=== PATIENT | female | born 1970 | race Hispanic/Latino ===

== ENCOUNTER 2016-11-22 11:08 | Emergency (ER) | payer OTHER ==
[2016-11-22 11:32] VITALS: BP 130/89
--- NOTE | 2016-11-22 13:35 | XRay Report ---
LEFT SHOULDER: Pain. Routine views demonstrate normal bony and soft tissue structures with normal joint alignment of the shoulder. IMPRESSION: Normal study.
--- NOTE | 2016-11-22 13:48 | Emergency Department Report ---
HPI - General Chief Complaint: Shoulder Injury Time Seen by Provider: 11/22/16 13:45 - HPI HPI: 46-year-old female, accompanied by sister, presents today complaining of left shoulder pain post fall off of a 6 foot ladder yesterday. Her sister is acting as a core microarchitect. Patient states that she landed on her left side. Denies head injury or loss of consciousness. Rates her pain as 8 out of 10 constant chest ache, patient states that she feels like her left shoulder is broken. Denies neck or back pain. Denies numbness, weakness, paresthesias. Denies fever, chills, nausea, vomiting, chest pain, shortness of breath, abdominal pain. ED Past Medical Hx - Past Medical History Hx Headaches / Migraines: Yes - Surgical History Hx Cholecystectomy: Yes Additional Surgical History: TUBAL - Social History Smoking Status: Never Smoker Substance Use Type: None - Medications Home Medications: Home Medications Medication Instructions Recorded Confirmed Last Taken Type Acetaminophen/Codeine [Tylenol 1 tab PO Q6H PRN #20 tab 11/22/16 Unknown Rx /Codeine # 3 tab] Cyclobenzaprine [Flexeril] 10 mg PO TID PRN #20 tablet 11/22/16 Unknown Rx ED Review of Systems ROS: Stated complaint: FALL,LEFT SIDE SHOULDER PAIN Other details as noted in HPI Constitutional: denies: chills, fever, malaise Eyes: denies: eye pain ENT: denies: ear pain, throat pain, congestion Respiratory: denies: cough, shortness of breath, wheezing Cardiovascular: denies: chest pain, palpitations Endocrine: no symptoms reported Gastrointestinal: denies: abdominal pain, nausea, vomiting Musculoskeletal: arthralgia. denies: back pain Neurological: denies: headache, weakness, numbness, paresthesias Physical Exam - Physical Exam Vital Signs: Vital Signs 11/22/16 11:22 Temperature 98 F Pulse Rate 75 Respiratory 16 Rate Blood Pressure 130/89 O2 Sat by Pulse 100 Oximetry Physical Exam: GENERAL: The patient is well-developed and well-nourished. Patient is in NAD. HEAD: Normocephalic. Atraumatic. NECK: Supple, nontender, without lymphadenopathy. No meningitic signs are noted. No vertebral tenderness to palpation. Mild tenderness to palpation noted over left trapezius muscle group. BACK: Full ROM. No midline tenderness. Mild tenderness to palpation noted over her left trapezius muscle group. No tenderness to palpation of sciatic notch bilaterally. Negative straight-leg raise bilaterally. CHEST/LUNGS: Clear to auscultation throughout. HEART/CARDIOVASCULAR: Regular rate and rhythm. No murmurs, rubs or gallops. ABDOMEN: Abdomen is soft, nontender. Bowel sounds normoactive. No guarding or rebound tenderness. EXTREMITIES: Tenderness to palpation of the left shoulder joint. Full range of motion, but extremely painful. No ecchymosis, deformity or crepitus noted. Normal sensation. 2 point discrimination intact. Peripheral pulses intact. Capillary refill less than 2 seconds. NEURO: Alert and oriented x 3. Normal gait. ED Course Vital Signs 11/22/16 11:22 Temperature 98 F Pulse Rate 75 Respiratory 16 Rate Blood Pressure 130/89 O2 Sat by Pulse 100 Oximetry ED Medical Decision Making - Lab Data Vital Signs 11/22/16 11:22 Temperature 98 F Pulse Rate 75 Respiratory 16 Rate Blood Pressure 130/89 O2 Sat by Pulse 100 Oximetry - Radiology Data Radiology results: report reviewed LEFT SHOULDER: Pain. Routine views demonstrate normal bony and soft tissue structures with normal joint alignment of the shoulder. IMPRESSION: Normal study. - Medical Decision Making 46-year-old female presents today complaining of left shoulder pain post six- foot fall off a ladder. Her x-ray results revealed no acute findings. Patient has been given Arminto, Flexeril and Zofran for pain control. Her left arm has been put in a sling. Patient has been provided with a referral for orthopedic to follow-up with. Patient is in no acute distress at this time. She will be discharged home and is encouraged to follow up with a primary care provider. She will be sent home on Flexeril and Tylenol 3 and is encouraged to return to the emergency room for any worsening symptoms. Critical care attestation.: If time is entered above; I have spent that time in minutes in the direct care of this critically ill patient, excluding procedure time. ED Disposition Clinical Impression: Shoulder pain Qualifiers: Chronicity: acute Laterality: left Qualified Code(s): M25.512 - Pain in left shoulder Fall Qualifiers: Encounter type: initial encounter Qualified Code(s): W19.XXXA - Unspecified fall, initial encounter Disposition: TO HOME OR SELFCARE Is pt being admited?: No Does the pt Need Aspirin: No Condition: Stable Instructions: Shoulder Sprain (ED), Rotator Cuff Injury (ED) Additional Instructions: Rest. Ice. Compress. Elevate. Take ibuprofen as needed for pain. Follow-up with primary care provider and orthopedic. Return to the emergency department if symptoms worsen. Prescriptions: Acetaminophen/Codeine [Tylenol /Codeine # 3 tab] 1 tab PO Q6H PRN #20 tab PRN Reason: Pain Cyclobenzaprine [Flexeril] 10 mg PO TID PRN #20 tablet PRN Reason: Muscle Spasm Referrals: MATIAS REEVES [Other] - 3-5 Days ANA PAULA KRAMER MD [Staff Physician] - 3-5 Days HUMA INGRAM MD [Staff Physician] - 3-5 Days Forms: Work/School Release Form(ED) Time of Disposition: 14:05
[2016-11-22] MEDS ORDERED: ZOFRAN ODT PO ONE (13:58)
[2016-11-22] MEDS ORDERED: NORCO 5/325 PO ONE (13:58)
[2016-11-22] MEDS ORDERED: FLEXERIL PO ONE (13:58)
== END 2016-11-22 14:20 | disposition home or self-care (01) ==
LOC: EDSEX → ED 11:08
DX: M25.512 Pain in left shoulder (principal); G43.909 Migraine, unspecified, not intractable, without status migrainosus; W11.XXXA Fall on and from ladder, initial encounter; Y93.89 Activity, other specified; Y92.89 Other specified places as the place of occurrence of the external cause; Y99.8 Other external cause status
CPT/HCPCS: 36415; 84703; 99284; Q0162